=== PATIENT | female | born 1990 | race Caucasian/White ===

== ENCOUNTER 2019-07-30 10:43 | Outpatient (CLI) | payer OTHER ==
--- NOTE | 2019-07-30 12:46 | RAD ---
XR UGI Air Contrast HISTORY: Reflux. Preop. COMPARISON: None. FINDINGS: Patient ingested the barium and crystals without difficulty. The esophageal mucosa and flo lity were normal. The stomach shows no intrinsic or extrinsic abnormalities in the duodenal bulb and C-loop were normal IMPRESSION: Unremarkable upper GI.
== END 2019-07-30 10:44 | disposition home or self-care (01) ==
LOC: RAD 10:43
PROVIDERS: ATTEND Surgery
DX: K21.9 Gastro-esophageal reflux disease without esophagitis (principal)
CPT/HCPCS: 74247